=== PATIENT | female | born 1970 ===

== ENCOUNTER 2018-12-06 13:59 | Outpatient (CLI) | payer OTHER | END 2018-12-06 14:00 | disposition home or self-care (01) | LOC: C.MAMMO 13:59 | DX: Z12.31 Encounter for screening mammogram for malignant neoplasm of breast (principal) ==

== ENCOUNTER 2018-12-15 10:43 | Outpatient (CLI) | payer OTHER | END 2018-12-15 10:44 | disposition home or self-care (01) | LOC: C.MAMMO 10:43 | DX: R92.8 Other abnormal and inconclusive findings on diagnostic imaging of breast (principal) ==